=== PATIENT | female | born 1970 | race Caucasian/White ===

== ENCOUNTER 2019-07-06 13:08 | Emergency (ER) | payer BC, SELFPAY ==
[2019-07-06 13:09] VITALS: BP 169/85; PULSE 112; RESP 16; TEMP 36.9; O2SAT 97; BMI 47.2
--- NOTE | 2019-07-06 14:28 | VDLE_ITS ---
Reason For Study: Left knee pain Procedure LEFT Exam performed portable in ED. GSV is normal. A preliminary report was called and/or faxed CFV is compressible, spontaneous, phasic, to Melody. competent, and demonstrates normal augmentation. FV is compressible, spontaneous, phasic, competent and demonstrates normal augmentation. POP V is compressible, spontaneous, phasic, competent and demonstrates normal augmentation. T/P Trunk is compressible. PTV is compressible. LT PerV is compressible. Interpretation Summary There is no evidence of left lower extremity deep vein thrombosis. Left great saphenous vein appears patent and compressible segmentally. Ordering Physician: Turner Oliver Referring Physician: Karly Álvarez M.D. Performed By: Rachele Mendoza RVT
--- NOTE | 2019-07-06 14:29 | ED.VIS.LOWEX ---
History of Present Illness Chief Complaint: Lower Extremity Injury Detail of Chief Complaint: left knee pain, no injury Informant: Patient Onset: Month(s) - 1 Context: Gradual Onset Timing: Continuous Quality of Pain: Aching Location: medial left knee and proximal calf Current Severity: Mild Maximum Severity: Moderate Worsened by: walking, bending knee Relieved by: rest/remaining still Associated Symptoms: Negative for: Parasthesia, Weakness, Loss of Funtion Narrative: Patient states for the last month she has been having left knee pain, it has become worse. It is a little better today since she has been resting all day. She also states in the past several days she has noticed swelling in her left ankle but not her right. Today she states it is gone because she has been resting and elevating. She has history of varicose veins and is concerned this may be a problem with them. She denies any recent immobilization, travel, hospitalization, or surgery; she states she works 77 hours a week and is up and around all the time. She denies any chest pain, shortness of breath, lightheadedness, or palpitations. No history of DVT or PE. No recent leg injury and no history of leg vein surgeries, she has had arthroscopy on her right knee before. - Past Medical History (1) Hypothyroid Status: Chronic (2) Type 2 diabetes mellitus Status: Chronic Past Medical History - Allergies and Home Meds Allergies/Adverse Reactions: Allergies No Known Allergies Allergy (Verified 07/06/19 14:48) Primary Care Physician: Karly Álvarez MD [Primary Care Provider] - Smoking Status: Former smoker Drugs: None Review of Systems Musculoskeletal: Reports: Swelling - See HPI. Gone today., Extremity Pain Skin: Denies: Rash, Wounds Neurological: Denies: Headache, Weakness, Numbness Physical Exam Vital Signs/Narrative: Vital Signs Temp Pulse Resp BP Pulse Ox 07/06/19 13:09 98.5 F 112 H 16 169/85 H 97 Inital Vital Signs reviewed: Yes - Extremity Exam Left Knee: Limited ROM - Difficulty bending all the way, but range is excellent including full extension., - - Patient has pain with stressing the MCL. There is no laxity. There is no pain with stressing the other 3 knee ligaments with a negative Lockman and posterior drawer. Difficult to evaluate for effusion due to obesity. Left Tib Fib: - - No pedal edema. Mild proximal medial left calf tenderness. No palpable cords. He has multiple nontender, noninflamed varicose veins medial left lower extremity, no thigh tenderness. General: Well nourished, Well developed, Obese, - - Appearing, NAD Head: Normocephalic, Atraumatic Skin: Normal color, No rash, No Trauma Neurological: Alert, Oriented x3, Cranial nerves II-XII grossly intact, Normal Strength, Normal Sensation Psychological: Normal affect, Normal Mood Diagnostic/Tx/Re-eval Clinical Impression(s) from Imaging Studies Knee X-Ray 07/06/19 14:37 IMPRESSION: Mild to moderate joint effusion. Mild osteoarthritis. No acute displaced fracture, or traumatic subluxation based on current assessment.. Electronically Signed: Momo Justice MD at 14:54 EDT Tel [phone], Service support , - Medical Decision Making According to the histopathology technician, venous eval is completely negative. There is no Alicea's cyst seen, no deep or superficial venous thrombosis, or other acute abnormality. Given her knee x-rays showing effusion, and her exam, I suspect this is a musculoskeletal knee problem. She has an orthopedic surgeon, I advised following up, she was given an Omar wrap. She is comfortable with that plan. ED Disposition - Plan for ED Patient: Disposition: Home or Assisted Living Diagnosis: Left knee pain Instructions: KNEE PAIN, Uncertain Cause Referrals: Karly Álvarez MD [Primary Care Provider] - Surgeon, your orthopedic [Other] (Call for appointment to be seen when able)
--- NOTE | 2019-07-06 14:37 | RAD_ITS ---
STUDY: X-RAY - LEFT KNEE REASON FOR EXAM: Female, 48 years old. Injury TECHNIQUE: 4 view(s) of the knee. COMPARISON: None. FINDINGS: Mild to moderate joint effusion. Narrowing of the joint space in the medial compartment, due to mild osteoarthritis. No acute displaced fracture, or traumatic subluxation based on current assessment. No gross destructive osseous lesion. The soft tissue structures are unremarkable. RAD/Knee 4 or More Views IMPRESSION: Mild to moderate joint effusion. Mild osteoarthritis. No acute displaced fracture, or traumatic subluxation based on current assessment.. Electronically Signed: Momo Justice MD at 14:54 EDT Tel [phone], Service support ,
[2019-07-06 15:39] VITALS: PULSE 92; RESP 16; O2SAT 100
--- NOTE | 2019-07-06 15:40 | ED.RN ---
REVIEWED D/C INSTRUCTIONS, FOLLOW UP CARE, AND S/S THAT WOULD WARRANT A RETURN TO THE ED WITH PT. PT VERBALIZED AN UNDERSTANDING AND DENIES FURTHER QUESTIONS FOR THIS RN. PT SKIN P/W/D, RESP EVEN AND UNLABORED, PT A&O X 3, NO DISTRESS NOTED. PT AMBULATED OUT OF ED, GAIT STEADY.
== END 2019-07-06 15:42 | disposition home or self-care (01) ==
LOC: ED 15:21
PROVIDERS: Emergency Provider Emergency Medicine; Family Provider Internal Medicine; PCP Internal Medicine
DX: M25.562 Pain in left knee (principal); M17.12 Unilateral primary osteoarthritis, left knee; Z87.891 Personal history of nicotine dependence; E03.9 Hypothyroidism, unspecified; E11.9 Type 2 diabetes mellitus without complications
CPT/HCPCS: 73564; 93971; 99282

== ENCOUNTER → 2021-02-13 09:40 | Outpatient (CLI) | payer BC, SELFPAY ==
[2021-02-10 08:36] VITALS: BMI 49.6
[2021-02-13 12:30] LABS: Microalbumin,Random Urine 8.9 mg/L (NO RANGE EST.); Microalbumin:Creatinine Ratio 7.5 mg/g CRE (<30 mg/g CRE)
[2021-02-13 12:31] LABS: ALB/GLOB Ratio 1.3 RATIO (0.9-2.4); AST(SGOT) 18 U/L (15-37); Alanine Aminotransfer ALT/SGPT 53 U/L (13-56); Albumin, Serum 3.8 g/dL (3.2-5.0); Alkaline Phosphatase 86 U/L (45-117); Anion Gap 5 (5-15); BUN 14 mg/dL (7-18); Calcium,Total 8.9 mg/dL (8.5-10.1); Chloride 107 mmol/L (98-107); Cholesterol 142 mg/dL (200); Creatinine, Serum 0.67 mg/dL (0.55-1.02); EST Glomerular Filtration Rate 100 mL/min (>60); Est Glom Filt Rate - Afr Amer 121 mL/min (>60); Globulin 2.9 g/dL (2.2-4.2); Glucose 135 mg/dL (74-106); High Density Lipoprotein 31 mg/dL; Potassium 4.5 mmol/L (3.5-5.1); Protein, Total 6.7 g/dL (6.4-8.2); Sodium Level 140 mmol/L (136-145); T4 Free Direct 0.84 ng/dL (0.76-1.46); Thyroid Stim Hormone (TSH) 6.86 uIU/mL (0.358-3.74); Triglycerides 181 mg/dL; Very Low Density Lipoprotein 36 mg/dL (5-40)
== END ==
PROVIDERS: PCP Internal Medicine; Referring Provider Internal Medicine Endocrinology, Diabetes & Metabolism; Visit Provider Internal Medicine Endocrinology, Diabetes & Metabolism
DX: E11.9 Type 2 diabetes mellitus without complications (principal); E03.9 Hypothyroidism, unspecified
CPT/HCPCS: 36415; 80053; 80061; 82043; 82570; 84439; 84443

== ENCOUNTER → 2023-03-18 | Outpatient (CLI) | payer OTHER, SELFPAY | END | disposition home or self-care (01) | LOC: LABSPEC 13:49 | PROVIDERS: PCP Internal Medicine; Referring Provider Otolaryngology; Visit Provider Otolaryngology | DX: J35.01 Chronic tonsillitis (principal) | CPT/HCPCS: 87070 ==